=== PATIENT | male | born 1985 | race African-American/Black ===

== ENCOUNTER 2018-07-07 14:06 | Emergency (ER) | payer BC ==
[~2018-07-07] VITALS: Ht 182.9 cm; Wt 108.9 kg
[2018-07-07 14:26] LABS: URINE BILIRUBIN NEGATIVE (Negative); URINE BLOOD NEGATIVE (Negative); URINE CLARITY CLEAR; URINE COLOR YELLOW; URINE GLUCOSE-RANDOM NEGATIVE (Negative); URINE KETONES NEGATIVE (Negative); URINE LEUKOCYTES-REFLEX TRACE (Negative); URINE NITRITE-REFLEX NEGATIVE (Negative); URINE PROTEIN NEGATIVE (Negative); URINE SPECIFIC GRAVITY 1.015 (1.005-1.030); URINE UROBILINOGEN 0.2 E.U./dl (0.2-1.0)
[2018-07-07 14:51] LABS: BACTERIA-REFLEX None Seen /HPF (None Seen); CASTS None Seen /LPF (None Seen); CRYSTALS None Seen /LPF (None Seen); SQUAMOUS 0-3 Few /LPF (0-3); URINE RBC None Seen /HPF (0-2); URINE WBC-REFLEX 0-5 Rare /HPF (0-5)
[2018-07-07] MEDS ORDERED: ACYCLOVIR 400400 MG PO (15:08)
[2018-07-07 15:25] VITALS: BP 125/81
[2018-07-09 18:10] LABS: HSV 1 DNA Negative (Negative); HSV 2 DNA Negative (Negative)
== END 2018-07-07 15:26 | disposition home or self-care (01) ==
LOC: M.ERS 14:06
PROVIDERS: Nurse Practitioner Family
DX: A60.01 Herpesviral infection of penis (principal); A64 Unspecified sexually transmitted disease; F17.210 Nicotine dependence, cigarettes, uncomplicated